=== PATIENT | female | born 1955 | race African-American/Black ===

== ENCOUNTER 2020-11-23 18:15 | Emergency (ER) | payer OTHER, MEDICAID ==
[~2020-11-23] VITALS: Ht 144.8 cm; Wt 95.3 kg
[2020-11-23] MEDS ORDERED: ACETAMINOPHEN 500 MG TAB PO ONE (19:30)
[2020-11-23 19:32] LABS: Urine Bacteria FEW /hpf (None Seen); Urine Blood Negative /uL (Negative); Urine Mucus FEW (None Seen); Urine Specific Gravity 1.017 (1.001-1.035); Urine WBC 2 /hpf (0 - 5)
[2020-11-23 19:35] LABS: Basophils # (auto) 0 10 ^3/uL (0-0.2); Basophils % (auto) 0.4 % (0.0-2.0); Eosinophils # (auto) 0 10 ^3/uL (0-0.8); Eosinophils % (auto) 0.4 % (0.0-7.0); Hematocrit 35.6 % (36.0-46.0); Lymphocytes # (auto) 2.3 10 ^3/uL (0.4-5.4); Lymphocytes % (auto) 26.7 % (10.0-50.0); Mean Corpuscular Hemoglobin 27.4 pg (28.0-32.0); Mean Corpuscular Volume 88.5 fL (80.0-100.0); Monocytes # (auto) 0.9 10 ^3/uL (0-1.3); Monocytes % (auto) 10.6 % (0.0-12.0); Neutrophils # (auto) 5.4 10 ^3/uL (1.6-8.6); Neutrophils % (auto) 61.9 % (37.0-80.0); Nucleated Red Blood Cells % 0.1 %; Red Blood Cells 4.02 10^6/uL (4.0-5.20); Red Cell Distribution Width 16.9 % (11.8-14.3); White Blood Cell 8.7 10^3/uL (4.4-10.8)
[2020-11-23 19:41] LABS: Magnesium 1.2 mg/dL (1.6-2.6)
[2020-11-23 19:45] LABS: Albumin 2.7 g/dL (3.4-5.0); Anion Gap 8 (5-15); Blood Urea Nitrogen 9 mg/dL (7-18); Calcium 9.1 mg/dL (8.5-10.1); Carbon Dioxide 29 mmol/L (21-32); Chloride 104 mmol/L (98-107); Glucose 118 mg/dL (74-106); Sodium 141 mmol/L (136-145)
[2020-11-23 19:47] LABS: INR 1.1 (0.9-1.15)
[2020-11-23 19:51] LABS: Alanine Aminotransferase 13 U/L (13-56); Alkaline Phosphatase 76 U/L (45-117); Aspartate Aminotransferase 17 U/L (15-37); BUN/Creatinine Ratio 8.7; Bilirubin, Total 0.6 mg/dL (0.2-1.0); GFR African American 68 mL/min; GFR Non-African American 56 mL/min; Total Protein 7.2 g/dL (6.4-8.2)
[2020-11-23] MEDS ORDERED: MAGNESIUM SULFATE 1GM/100ML 100 ML IV STA (20:24)
[2020-11-23 20:29] LABS: Lactic Acid w/Reflex 2.7 mmol/L (0.4-2.0)
[2020-11-23] MEDS ORDERED: POTASSIUM EFFERVESENT TAB 25 MEQ PO ONE (20:30)
[2020-11-23] MEDS ORDERED: IOHEXOL 300 MG/ML 100ML BOTTLE IJ ONE (21:35)
[2020-11-23] MEDS ORDERED: CEFEPIME 2 GM in SODIUM CHL 0.9% 50 ML IV ONE ×2 (22:15→23:45)
[2020-11-23] MEDS ORDERED: SODIUM CHLORIDE 0.9% 500 ML IV ONE (22:15)
[2020-11-24] MEDS ORDERED: VANCOMYCIN 1GM/250ML 250 ML IV ONE (01:00)
[2020-11-24] MEDS ORDERED: levoFLOXacin 750MG 150 ML IV ONE (01:00)
[2020-11-24 07:31] VITALS: BP 116/69
== END 2020-11-24 08:25 | disposition short-term general hospital (02) ==
LOC: EDBD 18:15 → ER 18:17
DX: R53.1 Weakness (principal); R50.9 Fever, unspecified; E87.2 Acidosis; E87.6 Hypokalemia; E83.42 Hypomagnesemia; E78.5 Hyperlipidemia, unspecified; I10 Essential (primary) hypertension; Z95.0 Presence of cardiac pacemaker; Z20.822 Contact with and (suspected) exposure to COVID-19
CPT/HCPCS: 36415; 36600; 71045; 74177; 80053; 81001; 82805; 83605; 83690; 83735; 83880; 84484; 85025; 85610; 87040; 87426; 93005; 96361; 96365; 96366; 96367; 96368; 99285; J0692; J1956; J3370; J3475; Q9967